=== PATIENT | female | born 1990 | race Hispanic/Latino ===

== ENCOUNTER 2018-10-20 14:16 | Inpatient (IN) | payer MEDICAID ==
[2018-10-20] MEDS ORDERED: LACTATED RINGERS 1,000 ML ONE (15:23)
[2018-10-20] MEDS ORDERED: MINERAL OIL PO PRN (15:44)
[2018-10-20] MEDS ORDERED: BRETHINE SUB-Q PRN (15:44)
[2018-10-20] MEDS ORDERED: STADOL IV PRN (15:44)
[2018-10-20] MEDS ORDERED: ZOFRAN IV PRN (15:44)
[2018-10-20] MEDS ORDERED: BRETHINE IVP PRN (15:44)
[2018-10-20] MEDS ORDERED: SUBLIMAZE IV PRN (15:44)
[2018-10-20] MEDS ORDERED: NARCAN 0.4 MG/1 ML IV PRN (15:44)
--- NOTE | 2018-10-20 15:47 | History and Physical Report ---
History of Present Illness Date of examination: 10/20/18 Date of admission: 10/20/18 15:27 Chief complaint: contractions History of present illness: Pt is a 28 year old primigravida MAYRA 11/14/18 at 36w3d presents with regular painful contractions and advanced cervical dilation of 5 cm. She denies leakage of fluid or vaginal bleeding. She has had care with Dr Kailey Ray which she reports has been uncomplicated but records are not available for review. Her GBS status is unknown. Past History Past Medical History: no pertinent history Past Surgical History: no surgical history Social history: no significant social history - Obstetrical History Expected Date of Delivery: 11/14/18 Actual Gestation: 36 Week(s) 3 Day(s) : 1 Medications and Allergies Allergies Allergy/AdvReac Type Severity Reaction Status Date / Time No Known Allergies Allergy Unverified 10/20/18 14:43 Active Meds: Active Medications Lactated Ringer's (Lactated Ringers) 1,000 mls @ 125 mls/hr IV DIRECT TAZ Review of Systems All systems: negative - Physical Exam Breasts: Positive: deferred Abdomen: Positive: soft (gravid ) Uterus: Positive: enlarged (gravid ) - Obstetrical FHR: category 2 Uterine Contraction Monitor Mode: External Cervical Dilatation: 5 (per RN ) Uterine Contraction Pattern: Regular Uterine Tone Measurement Phase: Resting Uterine Contraction Intensity: Strong/Firm Results Result Diagrams: 10/20/18 15:15 All other labs normal. Assessment and Plan A: IUP at 36w3d labor GBS unknown P: Admit to labor and delivery GBS prophylaxis Routine care
[2018-10-20] MEDS ORDERED: STADOL ONE (15:48)
[2018-10-20] MEDS ORDERED: PITOCin/NS 20 UNIT/1000ML DRIP 20 UNITS/1,000 ML BAG IV SCH (16:00)
[2018-10-20] MEDS ORDERED: LACTATED RINGERS 1,000 ML IV SCH ×2 (16:00)
[2018-10-20] MEDS ORDERED: XYLOCAINE 2% INFILTRATI ONE (16:00)
[2018-10-20] MEDS ORDERED: AMPICILLIN/NS 2 GM/100 ML 2 GM/100 ML BAG IV ONE (16:00)
[2018-10-20] MEDS ORDERED: MILK OF MAGNESIA PO PRN (16:36)
[2018-10-20] MEDS ORDERED: BENADRYL PO PRN (16:36)
[2018-10-20] MEDS ORDERED: NORCO 5/325 PO PRN (16:36)
[2018-10-20] MEDS ORDERED: TUCKS PAD TP PRN (16:36)
[2018-10-20] MEDS ORDERED: PHENERGAN PO PRN (16:36)
[2018-10-20] MEDS ORDERED: TYLENOL PO PRN (16:36)
[2018-10-20] MEDS ORDERED: LANSINOH TP PRN (16:36)
[2018-10-20] MEDS ORDERED: DULCOLAX PR PRN (16:36)
[2018-10-20] MEDS ORDERED: SODIUM CHLORIDE FLUSH SYRINGE 10 ML IV NR (17:00)
[2018-10-20] MEDS ORDERED: PITOCin/NS 30 UNIT/500ML 30 UNITS/500 ML BAG IV SCH (17:00)
[2018-10-20 17:01] LABS: Basophils # (Auto) 0.1 K/mm3 (0.0-0.1); Basophils % (Auto) 0.4 % (0.0-1.8); Eosinophils % (Auto) 0.2 % (0.0-4.3); Hematocrit 33.5 % (30.3-42.9); Hemoglobin 11.1 gm/dl (10.1-14.3); Lymphocytes # (Auto) 1.7 K/mm3 (1.2-5.4); Lymphocytes % (Auto) 9.8 % (13.4-35.0); Mean Corpuscular HGB Conc 33 % (30-34); Mean Corpuscular Volume 86 fl (79-97); Monocytes # (Auto) 0.9 K/mm3 (0.0-0.8); Monocytes % (Auto) 5.1 % (0.0-7.3); Platelet Count 210 K/mm3 (140-440); Red Blood Count 3.92 M/mm3 (3.65-5.03); Red Cell Distribution Width 13.1 % (13.2-15.2)
[2018-10-20 17:51] LABS: Hematocrit 32.9 % (30.3-42.9); Hemoglobin 10.8 gm/dl (10.1-14.3); Mean Corpuscular HGB Conc 33 % (30-34); Mean Corpuscular Volume 88 fl (79-97); Platelet Count 207 K/mm3 (140-440); Red Blood Count 3.76 M/mm3 (3.65-5.03)
--- NOTE | 2018-10-20 17:52 | Procedure Note ---
OB Delivery Note - Delivery Date of Delivery: 10/20/18 Surgeon: ALIX CURRY Estimated blood loss: other (400 mL) - Vaginal Delivery presentation: vertex Delivery position: OA Intrapartum events: precipitous labor- <3hr, mult.variable deceleratio Delivery monitor: external FHT, external uterine Route of delivery: vacuum extraction Indicators for instrumentation: nonreassuring FHR tracing Delivery placenta: spontaneous Episiotomy: midline Delivery repair: vicryl Anesthesia: local Delivery comments: Pt rapidly progressed to complete/complete/+2 station in ELIAS position. Due to n on-reassuring tracing, [place] vacuum placed in standard fashion and head delivered with 2 pulls, one pop off over midline episiotomy under no anesthesia. Vacuum released. Shoulders and body delivered without difficulty. placed on maternal abdomen and bulb suctioned. Cord clamped and cut. Cord blood collected. Vagina and perineum explored. Midline episiotomy repaired with 2-0 Vicryl in a standard fashion. EBL 400 mL. - Infant A at 1 minute: 8 at 5 minutes: 9 Gender: Female (252g (5lb 9 oz) @ 1608 pm)
[2018-10-20] MEDS ORDERED: AMPICILLIN/NS 1 GM/50 ML 1 GM/50 ML BAG IV SCH (20:00)
[2018-10-21] MEDS: IBUPROFEN PO SCH ×4 (05:02→20:38)
[2018-10-21] MEDS ORDERED: BOOSTRIX IM ONE (06:00)
[2018-10-21] MEDS ORDERED: M-M-R II VACCINE SUB-Q ONE (06:00)
[2018-10-21 06:19] LABS: Hematocrit 29.5 % (30.3-42.9); Hemoglobin 9.8 gm/dl (10.1-14.3)
[2018-10-22] MEDS: IBUPROFEN PO SCH ×2 (06:07→11:33)
--- NOTE | 2018-10-22 16:06 | Progress Note ---
Assessment and Plan PPD 2 s/p at 36 weeks. Doing well. Patient to stay 48 hours for unknown GBS. Plan for discharge today. Subjective - Subjective Date of service: 10/22/18 Principal diagnosis: post Patient reports: appetite normal, voiding normally, pain well controlled, ambulating normally [place]: doing well Objective - Vital Signs Latest vital signs: Vital Signs Temp Pulse Resp BP BP Pulse Ox 10/22/18 07:30 98.1 F 56 L 16 106/74 96 10/22/18 00:40 98.3 F 84 20 114/72 97 Intake and Output 10/22/18 10/22/18 10/22/18 06:59 14:59 22:59 Intake Total 240 600 Balance 240 600 Intake: Oral 240 600 Other: Total, Intake Amount 240 240 # Voids Void 1 1 - Exam Breasts: Present: deferred Cardiovascular: Present: Regular rate, Normal S1, Normal S2 Lungs: Present: Clear to auscultation, Normal air movement Abdomen: Present: normal appearance, soft Vulva: both: normal Uterus: Present: normal, firm Extremities: Present: normal
--- NOTE | 2018-10-22 16:08 | Discharge Summary ---
Providers - Providers Date of Admission: 10/20/18 15:27 Date of discharge: 10/22/18 Attending physician: ANDREINA REINA Primary care physician: ANDREINA REINA Hospitalization Reason for admission: active labor, labor Delivery: Episiotomy: none Laceration: none Other procedures: none Discharge diagnosis: delivery [place] baby: female Hospital course: unremarkable Condition at discharge: Good Disposition: DC-01 TO HOME OR SELFCARE Plan - Discharge Medications Prescriptions: Docusate Sodium [Colace] 100 mg PO BID PRN #60 capsule PRN Reason: Constipation Ibuprofen [Motrin] 800 mg PO Q8HR PRN #40 tablet PRN Reason: Pain, Mild (1-3) - Provider Discharge Summary Activity: routine, no sex for 6 weeks, no heavy lifting 4 weeks, no strenuous exercise Diet: routine Instructions: routine Additional instructions: [] Smoking cessation referral if applicable(refer to patient education folder for contact #) [] Refer to [facility]'s [facility] Booklet Call your doctor immediately for: * Fever > 100.5 * Heavy vaginal bleeding ( >1 pad per hour) * Severe persistent headache * Shortness of breath * Reddened, hot, painful area to leg or breast * Drainage or odor from incision. * Keep incision clean and dry at all times and follow doctor's instructions regarding bathing/showering - Follow up plan Follow up: ANDREINA REINA MD [Primary Care Provider] - 6 Weeks Forms: [facility] Discharge Summary
[2018-10-22 16:59] VITALS: BP 101/67
== END 2018-10-22 17:15 | disposition home or self-care (01) | DRG 775 ==
LOC: TRG 14:16 → LD 15:27 → OB 18:10
PROVIDERS: ADMIT Obstetrics & Gynecology; ATTEND Obstetrics & Gynecology
PROC: 10D07Z6 Extraction of Products of Conception, Vacuum, Via Natural or Artificial Opening (ICD-10-PCS; principal; 2018-10-20)
PROC: 0W8NXZZ Division of Female Perineum, External Approach (ICD-10-PCS; 2018-10-20)
PROC: 3E0234Z Introduction of Serum, Toxoid and Vaccine into Muscle, Percutaneous Approach (ICD-10-PCS; 2018-10-21)
DX: O60.14X0 Preterm labor third trimester with preterm delivery third trimester, not applicable or unspecified (principal); O62.3 Precipitate labor; O76 Abnormality in fetal heart rate and rhythm complicating labor and delivery; Z3A.36 36 weeks gestation of pregnancy; Z37.0 Single live birth; Z23 Encounter for immunization
CPT/HCPCS: 36415; 85014; 85018; 85025; 85027; 86592; 86706; 86762; 86850; 86900; 86901; 88305; 88307; 90471; 90715; G0378; J0595; J2590; J7120